=== PATIENT | female | born 1930 | race Two or more races ===

== ENCOUNTER 2017-08-04 15:23 | Inpatient (IN) | payer OTHER ==
[~2017-08-04] VITALS: Ht 165.1 cm; Wt 52.6 kg
[2017-08-04] MEDS ORDERED: LORAZEPAM0.5 MG PO (15:50)
[2017-08-04] MEDS ORDERED: NORVASC10 MG PO (15:50)
[2017-08-04] MEDS ORDERED: VITAMIN C500 M1 PO (15:51)
[2017-08-04] MEDS ORDERED: CENTRUM SILVER1 EAC2 PO (15:51)
[2017-08-04] MEDS ORDERED: VITAMIN D1000 UNI1 PO (15:51)
== END 2017-08-15 13:09 | disposition home or self-care (01) | DRG 748 ==
LOC: EDSTATUS 08-06 13:00 → ADM 08-06 13:00 → SURH 08-12 05:30 → O/R 08-12 05:30 → OB/GYN 08-12 05:30 → SURH 08-12 07:00 → OB/GYN 08-12 16:08 → O/R 08-12 16:08 → SURH 08-13 13:25
PROVIDERS: Obstetrics & Gynecology
PROC: 0ULG7ZZ Occlusion of Vagina, Via Natural or Artificial Opening (ICD-10-PCS; 2017-08-12)
PROC: 0JQC0ZZ Repair Pelvic Region Subcutaneous Tissue and Fascia, Open Approach (ICD-10-PCS; principal; 2017-08-12 07:00)
PROC: B246ZZZ Ultrasonography of Right and Left Heart (ICD-10-PCS; 2017-08-13)
PROC: 4A12X4Z Monitoring of Cardiac Electrical Activity, External Approach (ICD-10-PCS; 2017-08-13)
DX: N81.3 Complete uterovaginal prolapse (principal); I97.89 Other postprocedural complications and disorders of the circulatory system, not elsewhere classified; I10 Essential (primary) hypertension; I49.8 Other specified cardiac arrhythmias; I34.0 Nonrheumatic mitral (valve) insufficiency; I36.1 Nonrheumatic tricuspid (valve) insufficiency